=== PATIENT | female | born 1940 | race Caucasian/White ===

== ENCOUNTER 2021-12-25 00:37 | Emergency (ER) | payer MEDICARE, OTHER ==
[~2021-12-25] VITALS: Ht 152.4 cm; Wt 68.0 kg
[2021-12-25] MEDS ORDERED: ONDANSETRON ODT 4 MG TAB.RAPDIS SL ONE (01:45)
[2021-12-25] MEDS ORDERED: HYDROCODONE/APAP 5-325MG TABLET PO ONE (01:45)
[2021-12-25] MEDS ORDERED: ONDANSETRON ODT 4 MG TAB.RAPDIS ONE (02:11)
[2021-12-25] MEDS ORDERED: HYDROCODONE/APAP 5-325MG TABLET ONE (02:11)
[2021-12-25] MEDS ORDERED: ONDA4TAB5 PO (03:12)
[2021-12-25] MEDS ORDERED: HYDR-4209 PO (03:12)
--- NOTE | 2021-12-25 05:42 | NUR ---
cleared for d/c by , ACI provided, understanding verbalised. pt provided with CAM walking boot, after refusing short leg posterior. pt and family given at length instruction, understanding verbalised. pt out of dept in wheelchair with family
[2021-12-25 06:50] VITALS: BP 146/76
== END 2021-12-25 06:52 | disposition home or self-care (01) ==
LOC: ER 01:06
DX: S82.61XA Displaced fracture of lateral malleolus of right fibula, initial encounter for closed fracture (principal); W18.40XA Slipping, tripping and stumbling without falling, unspecified, initial encounter; Y92.89 Other specified places as the place of occurrence of the external cause; E11.9 Type 2 diabetes mellitus without complications; Z95.1 Presence of aortocoronary bypass graft; S92.101A Unspecified fracture of right talus, initial encounter for closed fracture; S92.351A Displaced fracture of fifth metatarsal bone, right foot, initial encounter for closed fracture; S92.511A Displaced fracture of proximal phalanx of right lesser toe(s), initial encounter for closed fracture; S92.411A Displaced fracture of proximal phalanx of right great toe, initial encounter for closed fracture
CPT/HCPCS: 73590; 73610; 73630; 73700; A4663; Q0162